=== PATIENT | male | born 1970 | race Caucasian/White ===

== ENCOUNTER → 2018-03-01 | Outpatient (CLI) | payer BC, OTHER | LOC: LAB.O 07:52 | PROVIDERS: ATTEND Nurse Practitioner Family | DX: R03.0 Elevated blood-pressure reading, without diagnosis of hypertension (principal); Z12.5 Encounter for screening for malignant neoplasm of prostate; Z13.220 Encounter for screening for lipoid disorders ==

== ENCOUNTER → 2019-02-21 | Outpatient (CLI) | payer BC | LOC: YCFC.O 07:41 | PROVIDERS: ATTEND Nurse Practitioner Family | DX: Z00.00 Encounter for general adult medical examination without abnormal findings (principal); E66.01 Morbid (severe) obesity due to excess calories; E29.1 Testicular hypofunction; Z12.5 Encounter for screening for malignant neoplasm of prostate ==

== ENCOUNTER 2019-09-10 11:16 | Emergency (ER) | payer BC ==
[2019-09-10 11:44] VITALS: TEMP 97.8
[2019-09-10] MEDS: SODIUM CHLORIDE 0.9% 1000ML 1,000 ML IVS ONE ×2 (12:05→13:21)
[2019-09-10] MEDS: ONDANSETRON INJ 4 MG/2 ML VIAL IV ONE (12:05)
[2019-09-10] MEDS: PANTOPRAZOLE SODIUM IV 40 MG VIAL IV ONE (12:08)
--- NOTE | 2019-09-10 12:18 | ED.PDOC ---
History of Present Illness - General Chief Complaint: Respiratory Problem Stated Complaint: cough and congestion Time Seen by Provider: 09/10/19 11:27 Source: patient, RN notes reviewed, Vital Signs reviewed - History of Present Illness Initial Comments: Patient presents for evaluation of nausea, vomiting, fevers and cough for the past week. Notes that he has had recent sick contacts with family that has all had the flu. He denies SOB. States that his cough is non-productive. Has had an episode or two of diarrhea. Denies any previous hx of lung disease. Does vape. Denies any recent abx. Allergies/Adverse Reactions: Allergies NO KNOWN ALLERGY Allergy (Verified 09/10/19 11:44) Home Medications: Ambulatory Orders Cyclobenzaprine HCl [Flexeril] 10 mg PO TID PRN #15 tab 05/21/14 Ondansetron Odt [Zofran ODT] 4 mg PO Q6H PRN #8 tab 09/10/19 Oseltamivir Capsule [Tamiflu] 75 mg PO BID 5 Days #10 capsule 09/10/19 RX: Azithromycin 500 mg PO DAILY #5 tab 09/10/19 Review of Systems - Review of Systems Constitutional: States: fever EENTM: States: nose congestion Respiratory: States: cough. Denies: short of breath Cardiology: Denies: chest pain Gastrointestinal/Abdominal: States: nausea, vomiting Musculoskeletal: Denies: back pain Neurological: Denies: headache Past Medical History (General) - Patient Medical History Hx Cardiac Disorders: Yes Hx Congestive Heart Failure: No Hx Hypertension: Yes Surgical History: other - Vaccination History Hx Influenza Vaccination: No Hx Pneumococcal Vaccination: No - Social History Hx Tobacco Use: No Hx Alcohol Use: No Family Medical History - Family History Mother Family History: Unknown Physical Exam - Physical Exam General Appearance: Alert, No apparent distress Neck: full range of motion, supple Respiratory: rhonchi - Bilateral lower perez Cardiovascular/Chest: normal peripheral pulses, regular rate, rhythm, no edema, no gallop Gastrointestinal/Abdominal: normal bowel sounds, non tender, soft Neurologic: sports nutritionist II-XII nml as tested, alert, normal mood/affect, oriented x 3 Skin Exam: warm/dry Progress - Progress Progress: Patient presented for evaluation of fever, cough and vomiting/diarrhea. Symptoms were consistent with influenza. Given recent sick contacts with influenza, flu screen was not performed. CXR was consistent with pneumonia. CBC was not significant for leukocytosis. CMP was significant for signs of dehydration and hyponatremia, likely from vomiting/diarrhea. Urine legionella antigen was also ordered given his hyponatremia and pneumonia. Patient has no risk factors for legionella. He was given zofran, reglan and phenergan for nausea with some improvement. He was given protonix for gastritis symptoms. He was not able to tolerate GI cocktail. I discussed admission with patient for new pneumonia, legionella work-up and intractable nausea. However, the patient declined. Discussed importance of admission for hydration and correction of hyponatremia. Patient felt more comfortable with discharge and trialing outpatient treatment. Will discharge with Rx for tamiflu, azithromycin and zofran. Discussed immediate return to ER if anything changes. - Results/Orders Results/Orders: Laboratory Results WBC 6.4 K/mm3 (4.8-10.8) 09/10/19 11:42 RBC 5.35 M/mm3 (4.70-6.10) 09/10/19 11:42 Hgb 16.1 gm/dL (14.0-18.0) 09/10/19 11:42 Hct 46.4 % (42.0-52.0) 09/10/19 11:42 MCV 86.7 fl (80.0-94.0) 09/10/19 11:42 MCH 30.0 pg (27.0-31.0) 09/10/19 11:42 MCHC 34.6 g/dL (33.0-37.0) 09/10/19 11:42 RDW 13.1 % (11.5-14.5) 09/10/19 11:42 Plt Count 124 K/mm3 (130-400) L 09/10/19 11:42 MPV 9.0 fl (7.40-10.4) 09/10/19 11:42 Absolute Neuts (auto) 4.50 K/uL (1.8-6.8) 09/10/19 11:42 Absolute Lymphs (auto) 0.90 K/uL (1.0-3.4) L 09/10/19 11:42 Absolute Monos (auto) 0.90 K/uL (0.2-0.8) H 09/10/19 11:42 Absolute Eos (auto) 0.00 K/uL (0.0-0.4) 09/10/19 11:42 Absolute Basos (auto) 0.00 K/uL (0.0-0.1) 09/10/19 11:42 Neutrophils % 70.3 % (42.0-78.0) 09/10/19 11:42 Lymphocytes % 14.8 % (20.0-50.0) L 09/10/19 11:42 Monocytes % 14.5 % (2.0-9.0) H 09/10/19 11:42 Eosinophils % 0.0 % (1.0-5.0) L 09/10/19 11:42 Basophils % 0.4 % (0.0-2.0) 09/10/19 11:42 Sodium 122 mmol/L (135-145) L 09/10/19 11:42 Potassium 3.5 mmol/L (3.6-5.0) L 09/10/19 11:42 Chloride 83 mmol/L (101-111) L 09/10/19 11:42 Carbon Dioxide 21 mmol/L (21-31) 09/10/19 11:42 Anion Gap 21.5 (12-18) H 09/10/19 11:42 BUN 19 mg/dL (7-18) H 09/10/19 11:42 Creatinine 1.38 mg/dL (0.6-1.3) H 09/10/19 11:42 BUN/Creatinine Ratio 13.8 (10-20) 09/10/19 11:42 Random Glucose 130 mg/dL (70-105) H 09/10/19 11:42 Serum Osmolality 249.9 mOsm/L (275-295) L* 09/10/19 11:42 Calcium 8.8 mg/dL (8.4-10.2) 09/10/19 11:42 Total Bilirubin 0.9 mg/dL (0.2-1.0) 09/10/19 11:42 AST 135 IU/L (10-42) H 09/10/19 11:42 ALT 74 IU/L (10-60) H 09/10/19 11:42 Alkaline Phosphatase 75 IU/L (42-121) 09/10/19 11:42 Serum Total Protein 7.6 gm/dL (6.4-8.2) 09/10/19 11:42 Albumin 3.9 g/dl (3.2-5.5) 09/10/19 11:42 Globulin 3.7 gm/dL (2.3-3.5) H 09/10/19 11:42 Albumin/Globulin Ratio 1.1 (1.1-1.9) 09/10/19 11:42 Lipase 31 U/L (22-51) 09/10/19 11:42 - EKG/XRAY/CT XRAY: chest - Bilateral patchy infiltrates Departure - Departure Clinical Impression: Influenza, Hyponatremia Pneumonia Qualifiers: Pneumonia type: due to unspecified organism Laterality: bilateral Lung location: lower lobe of lung Qualified Code(s): J18.9 - Pneumonia, unspecified organism Time of Disposition: 14:51 Disposition: Discharge to Home or Self Care Condition: Good Departure Forms: ED Discharge - Pt. Copy, Patient Portal Self Enrollment Instructions: DI for Pneumonia -- Adult, Hyponatremia (DC) Referrals: Aline Samuel FNP [Primary Care Provider] - 1-2 Weeks Prescriptions: RX: Azithromycin 500 mg PO DAILY #5 tab Ondansetron Odt [Zofran ODT] 4 mg PO Q6H PRN #8 tab PRN Reason: Nausea Oseltamivir Capsule [Tamiflu] 75 mg PO BID 5 Days #10 capsule Home Medications: Ambulatory Orders Cyclobenzaprine HCl [Flexeril] 10 mg PO TID PRN #15 tab 05/21/14 Ondansetron Odt [Zofran ODT] 4 mg PO Q6H PRN #8 tab 09/10/19 Oseltamivir Capsule [Tamiflu] 75 mg PO BID 5 Days #10 capsule 09/10/19 RX: Azithromycin 500 mg PO DAILY #5 tab 09/10/19 Comments: Esau Wynn D.O. [facility] #[id number]
--- NOTE | 2019-09-10 12:39 | RAD ---
EXAM DESCRIPTION: Chest,2 Views CLINICAL HISTORY: Cough COMPARISON: Previous chest x-ray May 21, 2014 TECHNIQUE: PA/lateral FINDINGS: Heart size is normal with normal pulmonary vascularity. No pleural effusion or pneumothorax. Patchy bilateral pulmonary infiltrates are present in the lung bases consistent with pneumonia. Lungs are clear with no consolidating infiltrate. Lateral view shows intact sternum and T-spine. Lateral view shows abnormal density overlying the heart as well as over the lower T-spine consistent with right middle lobe, right lower lobe, lingular and left lower lobe involvement. These findings are new compared to the previous study. IMPRESSION: Bibasilar pulmonary infiltrates consistent with pneumonia. Electronically signed by: Albin Robles MD 09/10/2019 12:37 PM [employer]
[2019-09-10] MEDS ORDERED: PROMETHAZINE HCL INJ 25 MG/ML VIAL ONE (13:17)
[2019-09-10] MEDS ORDERED: SODIUM CHLORIDE 0.9% 50ML 50 ML ONE (13:17)
[2019-09-10] MEDS: PROMETHAZINE HCL INJ 12.5 MG in SODIUM CHLORIDE 0.9% 50ML 50 ML IVPB ONE (13:20)
[2019-09-10] MEDS ORDERED: ALUM & MAG HYDROX-SIMETHICONE 30 ML UD ONE (14:04)
[2019-09-10] MEDS ORDERED: LIDOCAINE HCL 2% (MOUTH-THROAT) 15 ML UD ONE (14:04)
[2019-09-10] MEDS: ALUM & MAG HYDROX-SIMETHICONE 30 ML, LIDOCAINE VISCOUS 2% 15 ML PO ONE ×2 (14:07)
[2019-09-10] MEDS: METOCLOPRAMIDE HCL INJ 10 MG/2 ML VIAL IV ONE (14:29)
[2019-09-10] MEDS ORDERED: ACETAMINOPHEN 500 MG TAB PO ONE (15:14)
[2019-09-10 15:21] VITALS: BP 126/87; O2SAT 94
== END 2019-09-10 15:17 | disposition home or self-care (01) ==
LOC: ER 11:16
DX: J18.9 Pneumonia, unspecified organism (principal); J11.1 Influenza due to unidentified influenza virus with other respiratory manifestations; E87.1 Hypo-osmolality and hyponatremia; R11.2 Nausea with vomiting, unspecified; R19.7 Diarrhea, unspecified; F17.290 Nicotine dependence, other tobacco product, uncomplicated; I51.9 Heart disease, unspecified; I10 Essential (primary) hypertension; Z79.899 Other long term (current) drug therapy
CPT/HCPCS: 36415; 71046; 80053; 83690; 85025; A4216; J2405; J2550; J2765; J7030

== ENCOUNTER 2019-09-13 09:21 | Inpatient (IN) | payer BC ==
[2019-09-13] MEDS ORDERED: IPRATROPIUM/ALBUTEROL 3 ML VIAL NEB ONE (10:01)
[2019-09-13] MEDS ORDERED: methylPREDNISolone SODIUM SUC 125 MG/2 ML VIAL IM ONE (10:02)
[2019-09-13] MEDS ORDERED: SODIUM CHLORIDE 0.9% 1000ML 1,000 ML IVS ONE (10:32)
--- NOTE | 2019-09-13 11:13 | RAD ---
EXAM: XR Chest, 1 View CLINICAL HISTORY: sob TECHNIQUE: Frontal view of the chest. COMPARISON: 09/10/2019. FINDINGS: Lungs: Increased nodular infiltrates within both lower lung zones. Pleural space: Unremarkable. No pneumothorax. Heart: Unremarkable. No cardiomegaly. Mediastinum: Unremarkable. Bones/joints: Unremarkable. IMPRESSION: Increased nodular infiltrates within both lower lung zones. Consider further evaluation with CT chest to exclude or nodules. Electronically signed by: Natty Monte MD 09/13/2019 11:12 AM [facility]
--- NOTE | 2019-09-13 11:43 | ED.PDOC ---
History of Present Illness - General Chief Complaint: Respiratory Problem Stated Complaint: Fatigue, cough, congestion, unable to eat Time Seen by Provider: 09/13/19 10:01 - History of Present Illness Initial Comments: Pt was recently in the er and was diagnosed with pneumonia and sent home on Zithromax, pt says that now his symptoms are getting worse with Fatigue, cough, congestion, unable to eat and sob Severity: moderate Improving Factors: nothing Worsening Factors: nothing Associated Symptoms: shortness of breath Allergies/Adverse Reactions: Allergies NO KNOWN ALLERGY Allergy (Verified 09/13/19 09:57) Home Medications: Ambulatory Orders Cyclobenzaprine HCl [Flexeril] 10 mg PO TID PRN #15 tab 05/21/14 Azithromycin 500 mg PO DAILY #5 tab 09/10/19 Ondansetron Odt [Zofran ODT] 4 mg PO Q6H PRN #8 tab 09/10/19 Oseltamivir Capsule [Tamiflu] 75 mg PO BID 5 Days #10 capsule 09/10/19 Review of Systems - Review of Systems Constitutional: States: weakness EENTM: States: no symptoms reported, see HPI Respiratory: States: see HPI Cardiology: States: no symptoms reported Gastrointestinal/Abdominal: States: no symptoms reported Genitourinary: States: no symptoms reported Musculoskeletal: States: no symptoms reported Skin: States: no symptoms reported Neurological: States: no symptoms reported Endocrine: States: no symptoms reported Hematologic/Lymphatic: States: no symptoms reported Past Medical History (General) - Patient Medical History Hx Cardiac Disorders: Yes - [place] 2007 Hx Congestive Heart Failure: No Hx Hypertension: Yes Hx Gastroesophageal Reflux: Yes Hx Cancer: Yes - Sq cell carcinoma Surgical History: cancer surgery, coronary bypass surgery - Vaccination History Hx Influenza Vaccination: No Hx Pneumococcal Vaccination: No - Social History Hx Tobacco Use: Yes Hx Alcohol Use: Yes Hx Substance Use: No Hx Substance Use Treatment: No Hx Depression: No - Female History Patient is a Female of Child Bearing Age (10 -59 yrs old): No Patient : No Family Medical History - Family History Mother Family History: Unknown Living Status: Unknown Physical Exam - Physical Exam General Appearance: Alert, Well Developed, Well Nourished Eye Exam: bilateral normal ENT Exam: normal ENT inspection, hearing grossly normal Neck: non-tender, full range of motion, supple, normal inspection Respiratory: other - Decrease BS B/L lower lobes Extremity: normal range of motion, non-tender, normal inspection Neurologic: no motor/sensory deficits, alert, normal mood/affect, oriented x 3 Skin Exam: normal color Lymphatic: no adenopathy Progress - Progress Progress: 09/13/19 12:41 Case d/w hospitalist Francois Arrington agreed to admit the pt - Results/Orders Results/Orders: 09/13/19 11:43 ABG [Arterial Blood Gas] Stat Laboratory Results WBC 9.2 K/mm3 (4.8-10.8) 09/13/19 10:17 RBC 4.97 M/mm3 (4.70-6.10) 09/13/19 10:17 Hgb 15.0 gm/dL (14.0-18.0) 09/13/19 10:17 Hct 43.4 % (42.0-52.0) 09/13/19 10:17 MCV 87.4 fl (80.0-94.0) 09/13/19 10:17 MCH 30.2 pg (27.0-31.0) 09/13/19 10:17 MCHC 34.6 g/dL (33.0-37.0) 09/13/19 10:17 RDW 13.0 % (11.5-14.5) 09/13/19 10:17 Plt Count 179 K/mm3 (130-400) 09/13/19 10:17 MPV 9.0 fl (7.40-10.4) 09/13/19 10:17 Absolute Neuts (auto) 7.00 K/uL (1.8-6.8) H 09/13/19 10:17 Absolute Lymphs (auto) 0.80 K/uL (1.0-3.4) L 09/13/19 10:17 Absolute Monos (auto) 1.30 K/uL (0.2-0.8) H 09/13/19 10:17 Absolute Eos (auto) 0.00 K/uL (0.0-0.4) 09/13/19 10:17 Absolute Basos (auto) 0.10 K/uL (0.0-0.1) 09/13/19 10:17 Neutrophils % 76.0 % (42.0-78.0) 09/13/19 10:17 Lymphocytes % 8.6 % (20.0-50.0) L 09/13/19 10:17 Monocytes % 14.6 % (2.0-9.0) H 09/13/19 10:17 Eosinophils % 0.1 % (1.0-5.0) L 09/13/19 10:17 Basophils % 0.7 % (0.0-2.0) 09/13/19 10:17 Sodium 129 mmol/L (135-145) L 09/13/19 10:17 Potassium 3.6 mmol/L (3.6-5.0) 09/13/19 10:17 Chloride 84 mmol/L (101-111) L 09/13/19 10:17 Carbon Dioxide 30 mmol/L (21-31) 09/13/19 10:17 Anion Gap 18.6 (12-18) H 09/13/19 10:17 BUN 9 mg/dL (7-18) 09/13/19 10:17 Creatinine 1.03 mg/dL (0.6-1.3) 09/13/19 10:17 BUN/Creatinine Ratio 8.7 (10-20) L 09/13/19 10:17 Random Glucose 132 mg/dL (70-105) H 09/13/19 10:17 Serum Osmolality 259.5 mOsm/L (275-295) L 09/13/19 10:17 Calcium 8.9 mg/dL (8.4-10.2) 09/13/19 10:17 Total Bilirubin 0.8 mg/dL (0.2-1.0) 09/13/19 10:17 AST 70 IU/L (10-42) H D 09/13/19 10:17 ALT 73 IU/L (10-60) H 09/13/19 10:17 Alkaline Phosphatase 75 IU/L (42-121) 09/13/19 10:17 Serum Total Protein 7.4 gm/dL (6.4-8.2) 09/13/19 10:17 Albumin 3.6 g/dl (3.2-5.5) 09/13/19 10:17 Globulin 3.8 gm/dL (2.3-3.5) H 09/13/19 10:17 Albumin/Globulin Ratio 0.9 (1.1-1.9) L 01/05/20 10:17 Departure - Departure Clinical Impression: Hypoxemia, Pneumonia, Hyponatremia Time of Disposition: 12:42 Disposition: Admit Patient Condition: Fair Departure Forms: ED Discharge - Pt. Copy, Patient Portal Self Enrollment Referrals: Aline Samuel FNP [Primary Care Provider] - 1-2 Weeks Home Medications: Ambulatory Orders Cyclobenzaprine HCl [Flexeril] 10 mg PO TID PRN #15 tab 05/21/14 Azithromycin 500 mg PO DAILY #5 tab 09/10/19 Ondansetron Odt [Zofran ODT] 4 mg PO Q6H PRN #8 tab 09/10/19 Oseltamivir Capsule [Tamiflu] 75 mg PO BID 5 Days #10 capsule 09/10/19
[2019-09-13] MEDS ORDERED: levoFLOXacin 750MG IV 750 MG in PREMIX BAG 1 BAG IVPB ONE (11:48)
--- NOTE | 2019-09-13 13:37 | HP ---
SUPERVISING PHYSICIAN: Ho Queen MD CHIEF COMPLAINT: Flu-like symptoms with a fever and cough. HISTORY OF PRESENT ILLNESS: Mr. Garcia is a 49 year-old male patient who presented to the Emergency Room today with complaints of worsening fatigue and shortness of breath. He also noted that he has had some diarrhea, that he hasn't eaten very much since . He was diagnosed in the Emergency Room here on September 10 with flu-like symptoms but was not tested for influenza and pneumonia at that time. At that time, he was not started on Tamiflu but was given a Z-Remigio and discharged home. The patient notes that his symptoms have slowly worsened and he is significantly fatigued with any exertional effort. Initially in the Emergency Room, he did show oxygen saturations in the low 80s on room air. The patient endorses that he is not dependent on 02 regularly at home. He does endorse that he was exposed to multiple family members over that had flu-like symptoms and was diagnosed with the flu and he was the last one out of his family to have onset of symptoms this last week. A chest x-ray in the Emergency Room showed he had increase nodular infiltrates within both lung zones. His lab showed a normal white count at 9,200 with a left shift. His chemistries show he had a low sodium and elevated anion gap. Liver functions were slightly elevated with AST of 70 and ALT of 73. The Emergency Room physician requested the patient be admitted for continuation of workup and treatment of bilateral pneumonia. He was given fluids in the Emergency Room along with Solu-Medrol and Levaquin. He is now going to be admitted for flu-like symptoms and continuation of treatment for bilateral pneumonia. He was admitted in stable condition. PAST MEDICAL HISTORY: 1. Hypertension. 2. Gastroesophageal reflux disease. PAST SURGICAL HISTORY: 1. Discectomy at L4 and L5. 2. Cardiac stent placement in 2007. 3. 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 CURRENT MEDICATIONS: 1. Nexium 20 mg daily. 2. Aspirin 81 mg daily. 3. Lisinopril Hydrochlorothiazide 20-25 mg one tablet daily. 4. Azithromycin 500 mg ALLERGIES: No known drug allergies. FAMILY HISTORY: Father at age 64 due to lung cancer in 2005. Mother's history is unknown. Two brothers, one had a stroke at age 55, the other is healthy. SOCIAL HISTORY: The patient is , lives in [place]. He works at [employer]. He has never smoked but he is currently using a vaping system, an e-cigarette. He does not drink alcohol or use illicit drugs. REVIEW OF SYSTEMS: CONSTITUTIONAL: Positive for general malaise, fatigue, subjective fever. HEENT: Negative for earache, sore throat. Positive for nasal congestion. RESPIRATORY: As noted in history of present illness, worsened cough and shortness of breath, wheezing. HEART: Denies chest pain, palpitations, syncopal episodes. GASTROINTESTINAL: Positive for nausea and diarrhea, negative for vomiting, constipation or abdominal pain. GENITOURINARY: Denies dysuria, hematuria or polyuria. MUSCULOSKELETAL: Positive for general joint achiness. No joint swelling. SKIN: Denies lesions, moles, rashes or unexplained changes. NEUROLOGIC: Denies ataxia, seizures, headaches or other focal deficits. PHYSICAL EXAMINATION: VITAL SIGNS: Temperature 98.6, heart rate 108, blood pressure 112/85, respirations are 20, oxygen saturation 85% on room air, improving to 93% with nasal cannula at 2.5 liters after breathing treatments. GENERAL: The patient does appear generally unwell, tired, well-nourished but looks dehydrated and is in no current acute distress. He is alert. HEENT: Tympanic membranes are clear bilateral. Oropharynx is pink and moist. There was noted a small lesion to the lateral aspect of his tongue on the left side. No other lesions or changes. Posterior pharynx was mildly erythemic. NECK: Supple, non-tender with full range of motion. No jugular venous distention. CHEST: He has significantly decreased breath sounds throughout with some mild inspiratory and expiratory wheezing bilaterally and faint rhonchi heard to the bases more so on the lateral aspect bilaterally. CARDIOVASCULAR: Regular rate and rhythm without appreciable murmurs, rubs, or gallops. EXTREMITIES: No cyanosis, clubbing, or edema. NEUROLOGIC: He is alert and oriented x 3. SKIN: Warm, pink and dry. LABORATORY: White count normal at 9,200. He did have a left shift. Blood gas analysis showed a pH of 7.49 with P02 of 79, PC02 of 34, bicarb 25 with a saturation of 96% on 3 liter nasal cannula. Chemistries showed a low sodium of 129 with anion gap elevated at 18. Carbon dioxide 30, creatinine 1.03 with BUN of 9. Blood sugar 132, calcium 8.9, bilirubin normal, AST elevated at 70, ALT of 73. Rapid A strep screen was negative. MICROBIOLOGY: Influenza A and B by PCR was positive for influenza A. Blood cultures are pending. RADIOLOGY: Chest x-ray in the Emergency Room showed increased nodular infiltrates in both lower lung zones. This was followed up after admission to the medical/surgical floor with a CT of the chest with contrast and per radiology interpretation there was note of diffuse bilateral lung multifocal ground-glass opacities more confluent within the lung bases. It was noted that broad differential could include atypical infection/inflammation or cryptogenic organizing pneumonia or hypertensive pneumonitis. It was noted that this is unlikely appearance of metastatic disease. Clinical correlation is advised and followup to document resolution. No lymphadenopathy was noted. ASSESSMENT: 1. Sepsis secondary to influenza and bilateral pneumonia with patient showing hypoxemia and a respiratory alkalosis, tachycardia and elevated liver functions. 2. Multifocal pneumonia secondary to #1, possible viral pneumonitis versus developing bacterial pneumonia with patient having risk factors to include Pseudomonas. 3. Nausea and diarrhea, likely due to acute illness due to #1. 4. Electrolyte imbalance to include hyponatremia likely chronic with patient on Hydrochlorothiazide with some mild exacerbation due to current pneumonia. 5. Elevated transaminase, uncertain etiology, probably due to acute illness and recent Tylenol consumption for fever and pain control. 6. Chronic nicotine addiction in the form of vaping possibly complicating underlying pneumonia. 7. Hypertension on lisinopril. 8. Chronic gastroesophageal reflux disease. PLAN: Mr. Garcia is going to be admitted for treatment of influenza A and developing pneumonia. He was started on Tamiflu and Levaquin. We will put him on some IV fluids to help with some mild dehydration as he has had some poor oral intake in the last several days. Given that he is currently using a vaping system and shows a significant amount of ground-glass opacities on his CT, we will go ahead and start him on corticosteroids with Solu-Medrol. He will be on oxygen as needed to maintain his 02 saturation above 93%. We will recheck his labs and follow his respiratory rate in the morning. I anticipate his length of stay to be 2 to 3 days. He will be on DVT prophylaxis per protocol with Lovenox. Until we can transition him to outpatient management, we will continue to monitor and treat as needed. #[id number] [facility]
[2019-09-13] MEDS ORDERED: ALBUTEROL SULFATE 2.5 MG/3 ML VIAL NEB PRN (15:21)
[2019-09-13] MEDS ORDERED: ACETAMINOPHEN 325 MG TAB PO PRN (15:21)
[2019-09-13] MEDS ORDERED: SODIUM CHLORIDE 0.9% (FLUSH) 10 ML SYG IV PRN (15:21)
[2019-09-13] MEDS ORDERED: IV SET AND CAP CHANGE INJ INJ SCH (15:30)
--- NOTE | 2019-09-13 16:16 | CT ---
EXAM DESCRIPTION: Chest w/Contrast CLINICAL HISTORY: 49 years, Male, F/u on Cxr nodular inflitrates, Hx Sqamous Cell CA COMPARISON: Chest radiograph same day and 09/10/2018. TECHNIQUE: Thin-section axial CT images are obtained during rapid bolus administration of IV contrast media. Reconstructed MPR images are created and reviewed as well. FINDINGS: Bilateral diffuse peripheral predominant groundglass opacities within both lungs, more pronounced within the lung bases. No associated pleural effusion or pneumothorax. No solid pulmonary mass. No evidence of interstitial lung disease. The heart is normal in size without pericardial effusion. The great vessels are normal in caliber. No mediastinal or hilar adenopathy. No axillary lymphadenopathy. No acute osseous abnormality. No suspicious osseous lesion. Degenerative changes of the spine. Partially visualized upper abdomen is unremarkable. IMPRESSION: 1. Diffuse bilateral lung multifocal groundglass opacities (more confluent within the lung bases). Broad differential includes atypical infection/inflammation, cryptogenic organizing pneumonia, or hypersensitivity pneumonitis. This is an unlikely appearance of metastatic disease. Clinical correlation is advised. Follow-up to document resolution. 2. No lymphadenopathy. This exam was performed according to our departmental dose-optimization program, which includes automated exposure control, adjustment of the mA and/or kV according to patient size and/or use of iterative reconstruction technique. Electronically signed by: Ge Jimenez DO 09/13/2019 4:14 PM [facility]
[2019-09-13] MEDS ORDERED: SODIUM CHL 0.9% 50ML MIN-BAG+ 50 ML IVPB ONE (16:59)
[2019-09-13] MEDS ORDERED: CEFEPIME 2 GM VIAL ONE ×2 (17:00→19:21)
[2019-09-13] MEDS: IPRATROPIUM/ALBUTEROL 3 ML VIAL NEB SCH ×2 (17:04→20:30)
[2019-09-13] MEDS: SODIUM CHLORIDE 0.9% 1000ML 1,000 ML IVS PRN (17:34)
[2019-09-13] MEDS: CEFEPIME 2 GM in SODIUM CHL 0.9% 50ML MIN-BAG+ 50 ML IVPB SCH (17:36)
[2019-09-13] MEDS: methylPREDNISolone SODIUM SUC 125 MG/2 ML VIAL IV SCH ×2 (18:07→23:50)
[2019-09-13] MEDS: ASPIRIN (CHEWABLE) 81 MG TAB PO SCH (18:07)
[2019-09-13] MEDS ORDERED: PROMETHAZINE W/CODEINE SYR 5 ML UD PO PRN (20:05)
[2019-09-13] MEDS: OSELTAMIVIR 75 MG CAP PO SCH (20:52)
[2019-09-14] MEDS: SODIUM CHLORIDE 0.9% 1000ML 1,000 ML IVS PRN ×3 (01:25→20:56)
[2019-09-14] MEDS ORDERED: SODIUM CHL 0.9% 50ML MIN-BAG+ 50 ML IVPB ONE ×2 (03:50→15:45)
[2019-09-14] MEDS: CEFEPIME 2 GM in SODIUM CHL 0.9% 50ML MIN-BAG+ 50 ML IVPB SCH ×2 (04:00→16:34)
--- NOTE | 2019-09-14 07:53 | RAD ---
EXAM: Chest,2 Views HISTORY: Pneumonia COMPARISON: Chest one view 09/13/2019 CT chest 09/13/2019 TECHNIQUE: Chest two views PA and lateral FINDINGS: Heart size within normal limits. Trachea midline. Mild diffuse bilateral interstitial lung opacities. Mild hazy bilateral lower lung field opacities. No pleural effusion or pneumothorax. No acute fracture. IMPRESSION: Mild diffuse bilateral interstitial lung opacities. Mild hazy bilateral lower lung field opacities. This may represent infection or pulmonary edema. Electronically signed by: Rodney Arreola MD 09/14/2019 7:52 AM [facility]
[2019-09-14] MEDS: IPRATROPIUM/ALBUTEROL 3 ML VIAL NEB SCH ×4 (08:09→20:06)
[2019-09-14] MEDS: ASPIRIN (CHEWABLE) 81 MG TAB PO SCH (08:13)
[2019-09-14] MEDS: OSELTAMIVIR 75 MG CAP PO SCH ×2 (08:13→20:56)
[2019-09-14] MEDS: AZITHROMYCIN 250 MG TAB PO SCH (08:13)
[2019-09-14] MEDS ORDERED: levoFLOXacin 750MG IV 750 MG in PREMIX BAG 1 BAG IVPB SCH (10:00)
[2019-09-14] MEDS ORDERED: CEFEPIME 2 GM VIAL ONE (15:46)
--- NOTE | 2019-09-14 17:59 | PCM.PROG ---
PCM Subjective - Review of Systems Events since last encounter: Patient states he feels a little better than he did yesterday, although still with some shortness of breath with exertion. Denies any nausea or vomiting. He is tolerating diet well. Objective - Exam Vitals and I&O: Vital Signs Temp 97.5 F L 09/14/19 16:00 Pulse 76 09/14/19 16:10 Resp 18 09/14/19 16:10 BP 131/76 09/14/19 16:00 Pulse Ox 94 L 09/14/19 16:10 Intake & Output 09/13/19 09/14/19 09/14/19 18:59 06:59 18:59 Intake Total 290 1881 2080 Balance 290 1881 2080 Weight 370 lb 9.6 oz 370 lb 9.6 oz Intake: IV 50 1031 1000 Maxipime 2 GM In NS 50ml 50 50 MINI-BAG+ 50 ML @ 100 mls /hr IVPB Q12H ARISTEO Rx#: [id number] Ns 1000 ml 1,000 ml @ 889 937 7227 mls/hr IVS .QD PRN Rx#: [id number] Oral 192 [id number] 2666 Other: # Voids 1 1 1 # Bowel Movements 1 Weight Measurement Method Built in [facility] General: Alert, Oriented x3, Cooperative, No acute distress HEENT: Atraumatic, PERRLA Neck: Supple, No JVD Lungs: Other - Bases diminished with some mild wheezing diffusely Cardiovascular: Regular rate, Normal S1, Normal S2 Abdomen: Normal bowel sounds, Soft, No tenderness Extremities: No edema, Normal pulses - Results Results: Laboratory Results WBC 6.3 K/mm3 (4.8-10.8) 09/14/19 05:00 RBC 4.45 M/mm3 (4.70-6.10) L 09/14/19 05:00 Hgb 13.3 gm/dL (14.0-18.0) L 09/14/19 05:00 Hct 38.7 % (42.0-52.0) L 09/14/19 05:00 MCV 87.1 fl (80.0-94.0) 09/14/19 05:00 MCH 30.0 pg (27.0-31.0) 09/14/19 05:00 MCHC 34.5 g/dL (33.0-37.0) 09/14/19 05:00 RDW 12.9 % (11.5-14.5) 09/14/19 05:00 Plt Count 165 K/mm3 (130-400) 09/14/19 05:00 MPV 9.0 fl (7.40-10.4) 09/14/19 05:00 Absolute Neuts (auto) 5.40 K/uL (1.8-6.8) 09/14/19 05:00 Absolute Lymphs (auto) 0.40 K/uL (1.0-3.4) L 09/14/19 05:00 Absolute Monos (auto) 0.40 K/uL (0.2-0.8) 09/14/19 05:00 Absolute Eos (auto) 0.00 K/uL (0.0-0.4) 09/14/19 05:00 Absolute Basos (auto) 0.00 K/uL (0.0-0.1) 09/14/19 05:00 Neutrophils % 85.9 % (42.0-78.0) H 09/14/19 05:00 Lymphocytes % 6.9 % (20.0-50.0) L 09/14/19 05:00 Monocytes % 7.1 % (2.0-9.0) 09/14/19 05:00 Eosinophils % 0.0 % (1.0-5.0) L 09/14/19 05:00 Basophils % 0.1 % (0.0-2.0) 09/14/19 05:00 pCO2 34 mmHg (35-48) L 09/13/19 11:43 pO2 79 mmHg (83-108) L 09/13/19 11:43 HCO3 25.6 mmol/L 09/13/19 11:43 ABG pH 7.490 (7.35-7.45) H 09/13/19 11:43 ABG O2 Saturation 96.4 % (95.0-99.0) 09/13/19 11:43 ABG Base Excess 3.0 mmol/L 09/13/19 11:43 ABG Deoxyhemoglobin 3.5 % (0.0-5.0) 09/13/19 11:43 Oxyhemoglobin % 95.4 % (94.0-98.0) 09/13/19 11:43 Carboxyhemoglobin % 0.4 % (0.5-1.5) L 09/13/19 11:43 Methemoglobin % Sat 0.7 % (0.0-1.5) 09/13/19 11:43 Calc Total Hemoglobin 14.3 g/dL (13.5-17.5) 09/13/19 11:43 Sodium 132 mmol/L (135-145) L 09/14/19 05:00 Potassium 3.4 mmol/L (3.6-5.0) L 09/14/19 05:00 Chloride 94 mmol/L (101-111) L 09/14/19 05:00 Carbon Dioxide 25 mmol/L (21-31) 09/14/19 05:00 Anion Gap 16.4 (12-18) 09/14/19 05:00 BUN 8 mg/dL (7-18) 09/14/19 05:00 Creatinine 0.83 mg/dL (0.6-1.3) 09/14/19 05:00 BUN/Creatinine Ratio 9.6 (10-20) L 09/14/19 05:00 Random Glucose 170 mg/dL (70-105) H 09/14/19 05:00 Serum Osmolality 266.8 mOsm/L (275-295) L 09/14/19 05:00 Calcium 8.7 mg/dL (8.4-10.2) 09/14/19 05:00 Total Bilirubin 0.8 mg/dL (0.2-1.0) 09/13/19 10:17 AST 70 IU/L (10-42) H D 09/13/19 10:17 ALT 73 IU/L (10-60) H 09/13/19 10:17 Alkaline Phosphatase 75 IU/L (42-121) 09/13/19 10:17 Serum Total Protein 7.4 gm/dL (6.4-8.2) 09/13/19 10:17 Albumin 3.6 g/dl (3.2-5.5) 09/13/19 10:17 Globulin 3.8 gm/dL (2.3-3.5) H 09/13/19 10:17 Albumin/Globulin Ratio 0.9 (1.1-1.9) L 09/13/19 10:17 Group A Strep Rapid Negative (NEGATIVE) 09/13/19 14:37 Assessment/Plan - Assessment Assessment: 1. Influenza A with influenza pneumonitis and possible bacterial pneumonia. 2. Hypoxemia secondary to #1 3. Nicotine dependency in the form of vaping. 4. HTN, controlled. 5. Transaminitis. 6. Suspected ANGEL. - Plan for Current Visit Plan: We will continue nebs, empiric antibiotics, and Tamiflu. Encourage ambulation and wean oxygen as tolerated. Currently requiring nasal cannula to maintain oxygen saturations. Would recommend outpatient testing for ANGEL.
[2019-09-15] MEDS ORDERED: SODIUM CHL 0.9% 50ML MIN-BAG+ 50 ML IVPB ONE ×3 (04:36→20:18)
[2019-09-15] MEDS ORDERED: CEFEPIME 2 GM VIAL ONE ×3 (04:36→20:19)
[2019-09-15] MEDS: CEFEPIME 2 GM in SODIUM CHL 0.9% 50ML MIN-BAG+ 50 ML IVPB SCH ×2 (04:39→16:53)
--- NOTE | 2019-09-15 07:19 | RAD ---
EXAM DESCRIPTION: Chest,1 View CLINICAL HISTORY: Pneumonia FINDINGS/ IMPRESSION: Comparison 09/14/2019 Mild cardiomegaly. Pulmonary vascular congestion. Interstitial infiltrates in the perihilar regions and lung bases primarily with developing alveolar infiltrate in the right lung base. Pulmonary edema could have this appearance. The asymmetry in the right lung base may be developing pneumonia. No large effusions Electronically signed by: Gabriel Castro MD 09/15/2019 7:18 AM [facility]
[2019-09-15] MEDS: IPRATROPIUM/ALBUTEROL 3 ML VIAL NEB SCH ×4 (08:55→20:07)
[2019-09-15] MEDS: ASPIRIN (CHEWABLE) 81 MG TAB PO SCH (09:23)
[2019-09-15] MEDS: AZITHROMYCIN 250 MG TAB PO SCH (09:23)
[2019-09-15] MEDS: OSELTAMIVIR 75 MG CAP PO SCH ×2 (09:23→21:00)
[2019-09-15] MEDS ORDERED: POTASSIUM CHLORIDE 20 MEQ TAB PO ONE (10:15)
--- NOTE | 2019-09-15 10:23 | PCM.PROG ---
PCM Subjective - Review of Systems Events since last encounter: Patient feels okay. Ambulated hallway earlier, states that oxygen saturations were about 91% on room air during ambulation. No significant shortness of breath. Denies any nausea or vomiting. Wants to take a shower. Objective - Exam Vitals and I&O: Vital Signs Temp 98.5 F 09/15/19 05:00 Pulse 95 H 09/15/19 09:00 Resp 20 09/15/19 09:00 BP 117/74 09/15/19 05:00 Pulse Ox 96 09/15/19 09:00 Intake & Output 09/14/19 09/15/19 09/15/19 18:59 06:59 18:59 Intake Total 3130 610 Balance 3130 610 Weight 370 lb 9.6 oz 377 lb 3 oz Intake: IV 0 Maxipime 2 GM In NS 50ml 50 MINI-BAG+ 50 ML @ 100 mls /hr IVPB Q12H ARISTEO Rx#: [id number] Ns 1000 ml 1,000 ml @ 125 2000 mls/hr IVS .QD PRN Rx#: [id number] Oral 1080 610 Other: # Voids 1 3 # Bowel Movements 1 General: Alert, Oriented x3, Cooperative, No acute distress HEENT: Atraumatic, PERRLA, Mucous membr. moist/pink Neck: Supple, No JVD Lungs: Other - CTA upper lung perez, a small expiratory wheeze and end-expirati on in bilateral lower lung perez. Cardiovascular: Normal S1, Normal S2 Abdomen: Normal bowel sounds, Soft, No tenderness Extremities: No edema - Results Results: Laboratory Results WBC 11.3 K/mm3 (4.8-10.8) H D 09/15/19 05:05 RBC 4.17 M/mm3 (4.70-6.10) L 09/15/19 05:05 Hgb 12.4 gm/dL (14.0-18.0) L 09/15/19 05:05 Hct 36.9 % (42.0-52.0) L 09/15/19 05:05 MCV 88.5 fl (80.0-94.0) 09/15/19 05:05 MCH 29.8 pg (27.0-31.0) 09/15/19 05:05 MCHC 33.6 g/dL (33.0-37.0) 09/15/19 05:05 RDW 13.1 % (11.5-14.5) 09/15/19 05:05 Plt Count 257 K/mm3 (130-400) 09/15/19 05:05 MPV 8.2 fl (7.40-10.4) 09/15/19 05:05 Absolute Neuts (auto) 8.90 K/uL (1.8-6.8) H 09/15/19 05:05 Absolute Lymphs (auto) 0.90 K/uL (1.0-3.4) L 09/15/19 05:05 Absolute Monos (auto) 1.40 K/uL (0.2-0.8) H 09/15/19 05:05 Absolute Eos (auto) 0.00 K/uL (0.0-0.4) 09/15/19 05:05 Absolute Basos (auto) 0.00 K/uL (0.0-0.1) 09/15/19 05:05 Neutrophils % 79.3 % (42.0-78.0) H 09/15/19 05:05 Lymphocytes % 7.9 % (20.0-50.0) L 09/15/19 05:05 Monocytes % 12.7 % (2.0-9.0) H 09/15/19 05:05 Eosinophils % 0.0 % (1.0-5.0) L 09/15/19 05:05 Basophils % 0.1 % (0.0-2.0) 09/15/19 05:05 pCO2 34 mmHg (35-48) L 09/13/19 11:43 pO2 79 mmHg (83-108) L 09/13/19 11:43 HCO3 25.6 mmol/L 09/13/19 11:43 ABG pH 7.490 (7.35-7.45) H 09/13/19 11:43 ABG O2 Saturation 96.4 % (95.0-99.0) 09/13/19 11:43 ABG Base Excess 3.0 mmol/L 09/13/19 11:43 ABG Deoxyhemoglobin 3.5 % (0.0-5.0) 09/13/19 11:43 Oxyhemoglobin % 95.4 % (94.0-98.0) 09/13/19 11:43 Carboxyhemoglobin % 0.4 % (0.5-1.5) L 09/13/19 11:43 Methemoglobin % Sat 0.7 % (0.0-1.5) 09/13/19 11:43 Calc Total Hemoglobin 14.3 g/dL (13.5-17.5) 09/13/19 11:43 Sodium 135 mmol/L (135-145) 09/15/19 05:05 Potassium 3.1 mmol/L (3.6-5.0) L 09/15/19 05:05 Chloride 98 mmol/L (101-111) L 09/15/19 05:05 Carbon Dioxide 25 mmol/L (21-31) 09/15/19 05:05 Anion Gap 15.1 (12-18) 09/15/19 05:05 BUN 11 mg/dL (7-18) 09/15/19 05:05 Creatinine 0.83 mg/dL (0.6-1.3) 09/15/19 05:05 BUN/Creatinine Ratio 13.3 (10-20) 09/15/19 05:05 Random Glucose 130 mg/dL (70-105) H 09/15/19 05:05 Serum Osmolality 271.3 mOsm/L (275-295) L 09/15/19 05:05 Calcium 8.6 mg/dL (8.4-10.2) 09/15/19 05:05 Total Bilirubin 0.8 mg/dL (0.2-1.0) 09/13/19 10:17 AST 70 IU/L (10-42) H D 09/13/19 10:17 ALT 73 IU/L (10-60) H 09/13/19 10:17 Alkaline Phosphatase 75 IU/L (42-121) 09/13/19 10:17 Serum Total Protein 7.4 gm/dL (6.4-8.2) 09/13/19 10:17 Albumin 3.6 g/dl (3.2-5.5) 09/13/19 10:17 Globulin 3.8 gm/dL (2.3-3.5) H 09/13/19 10:17 Albumin/Globulin Ratio 0.9 (1.1-1.9) L 01/05/20 10:17 Group A Strep Rapid Negative (NEGATIVE) 09/13/19 14:37 Assessment/Plan - Assessment Assessment: 1. Influenza A with influenza pneumonitis and possible bacterial pneumonia. 2. hypoxemia secondary to #1. 3. Nicotine dependency in the form of vaping. 4. HTN, controlled. 5. Transaminitis. 6. Suspected ANGEL. 7. Hypokalemia. - Plan for Current Visit Plan: Will stop IV fluids. Supplement potassium with K-Dur. Will continue nebs and IV antibiotics. I suspect the leukocytosis is secondary to the steroid dose that he received. But, will monitor. Continue ambulation. CXR interpreted as pulmonary vascular congestion and possible developing RLL infiltrate. Will get a 2 view tomorrow. Recheck labs as well. If he is stable tomorrow, can go home with Tamiflu and PO antibiotics. Once again, I do think he needs outpatient evaluation for sleep apnea.
[2019-09-15] MEDS ORDERED: SODIUM CHLORIDE 0.65% NASAL SPRAY 45 ML BTTL BNAS SCH (12:00)
[2019-09-16] MEDS: CEFEPIME 2 GM in SODIUM CHL 0.9% 50ML MIN-BAG+ 50 ML IVPB SCH (04:04)
--- NOTE | 2019-09-16 07:28 | RAD ---
CHEST, TWO VIEW, XR CLINICAL HISTORY: pneumonitis vs pneumonia COMPARISON: 09/15/2019 TECHNIQUE: Frontal and lateral Chest. FINDINGS: There are patchy parenchymal opacities throughout the right and left lower lobe, right middle lobe and lingula consistent with pneumonia. Findings have slightly improved. No pneumothorax or pleural fluid. Heart is normal in size. Normal cardiac mediastinal contours Unremarkable soft tissues and bones. IMPRESSION: 1. Persistent but improving multifocal pneumonia. Electronically signed by: Samantha Harrington DO 09/16/2019 7:27 AM [employer]
[2019-09-16 08:13] VITALS: BP 113/70; TEMP 97.8; O2SAT 94
[2019-09-16] MEDS: ASPIRIN (CHEWABLE) 81 MG TAB PO SCH (08:14)
[2019-09-16] MEDS: OSELTAMIVIR 75 MG CAP PO SCH (08:14)
[2019-09-16] MEDS: AZITHROMYCIN 250 MG TAB PO SCH (08:14)
[2019-09-16] MEDS: IPRATROPIUM/ALBUTEROL 3 ML VIAL NEB SCH ×2 (08:15→14:09)
[2019-09-16] MEDS ORDERED: POTASSIUM CHLORIDE 20 MEQ TAB PO ONE (08:19)
[2019-09-16] MEDS ORDERED: guaiFENesin ER TAB 600 MG TAB PO SCH (11:00)
--- NOTE | 2019-09-16 13:56 | DS ---
SUPERVISING PHYSICIAN: Gabriel Groves MD DISCHARGE DIAGNOSIS: 1. Influenza A with influenza pneumonitis and possible bacterial pneumonia. 2. Hypoxemia secondary to #1, improved. 3. Nicotine dependency in the form of vaping. 4. Hypertension, controlled. 5. Transaminitis. 6. Suspected obstructive sleep apnea. 7. Hypokalemia. HISTORY OF PRESENT ILLNESS: This is a 49-year-old male patient who came to the Emergency Room today with complaints of worsening fatigue and shortness of breath. He also had some diarrhea and has not eaten very much since [place]. He was in the Emergency Room on September 10 and had flu-like symptoms, but was not tested for influenza or pneumonia at that time. He was not started on Tamiflu, but was given a Z-Remigio and discharged home. It is to be noted that his had the flu at [facility]. The patient had symptoms that worsened and at the point he came in, he was significantly fatigued with any exertional effort. In the Emergency Room, his oxygen saturations were in the low 80s on room air. He is not oxygen dependent at home. He was exposed to multiple family members over [place] that had flu-like symptoms and had been diagnosed with the flu shortly after that. A chest x-ray in the Emergency Room showed he had increased nodular infiltrates within both lung zones. His lab showed a normal white count at 9,200 with a left shift on differential. His chemistries showed a low sodium and elevated anion gap. Liver function tests were slightly elevated with AST of 70 and ALT of 73. He was treated with Solu-Medrol and Levaquin in the Emergency Room for pneumonia and was admitted for flu-like symptoms and continuation of treatment for bilateral pneumonia. He was admitted in stable condition. HOSPITAL COURSE: He was diagnosed with influenza and possibility of developing pneumonia. He was started on Tamiflu and Levaquin. He received some IV fluids especially due to his poor oral intake over the last week or so. He does currently use a vaping system and his CT showed a significant amount of ground- glass opacities. He initially required oxygen to keep his saturations above 93%. He was also put on Lovenox for DVT prophylaxis. He continued to have some mild exertional dyspnea. He continued to have a poor appetite. He continued on aggressive pulmonary hygiene including nebulizer treatments, antibiotics and Tamiflu. He began ambulating in the hallways and initially showed oxygen saturations around 90%, but he has since started ambulating in the hallways with no oxygen with saturations that are staying in the mid to low 90s. At some point, he was changed from Levaquin to cefepime and azithromycin. He will be discharged home today in stable condition. LABORATORY: His initial WBCs were 9,200 and went up as high as 11,900, likely secondary to steroid use. His hemoglobin and hematocrit remained stable and today are 12.2 and 36.4. He had left shift on his differential, but that is now resolved. Blood gas showed pCO2 34, pO2 79, bicarb 25.6 and pH 7.49. O2 saturations were 95%. His initial sodium was 129 and today is 133. Potassium was 3.6 and dropped as low as 3.1 and today is 3.2 and he received supplementation. Chloride on admission was 84 and is now 98. Carbon dioxide has remained stable and is 25. BUN 10, creatinine 0.79. Glucose has run between 121 and 170. His initial AST was 70 and today is 30. ALT was 73, today it is 52. Strep was negative. MICROBIOLOGY: Preliminary blood cultures showed no growth after 3 days. Influenza A and B per PCR was positive for influenza A, negative for influenza B. RADIOLOGY: His initial chest x-ray showed increased nodular infiltrates in both lower lung zones. Today, his chest x-ray showed persistent, but improving multifocal pneumonia. Chest CT shows: 1) Diffuse bilateral lung multifocal ground-glass opacities more confluent within the lung bases. Broad differential includes atypical infection/inflammation, cryptogenic organizing pneumonia or hypersensitivity pneumonitis. This is an unlikely appearance of metastatic disease. Clinical correlation is advised and followup to document resolution. 2) No lymphadenopathy. DISCHARGE PLAN: The patient will be discharged home in stable condition. He is to increase his activity as tolerated and to resume his previous diet. In addition to his routine medications, he is to continue on Levaquin for 5 days as well as cefdinir for 7 days. He is also to use Mucinex twice daily. He is to followup with Dr. Caballero on 09/23/19. He is to come to [facility] prior to his appointment with Dr. Caballero for a chest x-ray. He has been given a requisition for that. I have strongly encouraged the patient to stop vaping and he is to return to the hospital for any problems or complications. DISCHARGE MEDICATIONS: 1. Aspirin. 2. Lisinopril/hydrochlorothiazide. 3. Nexium. 4. Fluticasone. 5. Cefdinir. 6. Guaifenesin. 7. Levaquin. #[id number] [facility]
[2019-09-16] MEDS ORDERED: SODIUM CHLORIDE 0.9% (FLUSH) 10 ML SYG IV SCH (21:00)
== END 2019-09-16 12:10 | disposition home or self-care (01) | DRG 871 ==
LOC: ER 09:21 → OBSVTOIN 13:20 → MS 13:20
PROVIDERS: ADMIT Nurse Practitioner Family; ATTEND Nurse Practitioner Acute Care
PROC: BW241ZZ Computerized Tomography (CT Scan) of Chest and Abdomen using Low Osmolar Contrast (ICD-10-PCS; principal; 2019-09-13)
DX: A41.9 Sepsis, unspecified organism (principal); J10.00 Influenza due to other identified influenza virus with unspecified type of pneumonia; E87.1 Hypo-osmolality and hyponatremia; E86.0 Dehydration; R09.02 Hypoxemia; I10 Essential (primary) hypertension; R74.0 Nonspecific elevation of levels of transaminase and lactic acid dehydrogenase [LDH]; G47.33 Obstructive sleep apnea (adult) (pediatric); E87.6 Hypokalemia; K21.9 Gastro-esophageal reflux disease without esophagitis; I25.2 Old myocardial infarction; F17.290 Nicotine dependence, other tobacco product, uncomplicated; Z95.5 Presence of coronary angioplasty implant and graft; Z79.82 Long term (current) use of aspirin; Z79.899 Other long term (current) drug therapy

== ENCOUNTER → 2019-09-23 | Outpatient (CLI) | payer BC ==
--- NOTE | 2019-09-23 09:55 | RAD ---
EXAM DESCRIPTION: Chest,2 Views CLINICAL HISTORY: 49 years Male, PNEUMONIA, UNSP ORGANISM COMPARISON: September 16, 2019 Findings: Two radiographs Cardiac silhouette and pulmonary vasculature are within normal limits. No pneumothorax. No pleural effusion. Persistent although improving multifocal airspace disease. No acute osseous abnormality. Soft tissues are unremarkable. IMPRESSION: Persistent although improving multifocal pneumonia. Electronically signed by: Rob Mayo MD 09/23/2019 9:53 AM [employer]
== END ==
LOC: RAD 09:14
PROVIDERS: ATTEND Nurse Practitioner Acute Care
DX: J18.9 Pneumonia, unspecified organism (principal)

== ENCOUNTER → 2019-10-24 | Outpatient (CLI) | payer BC ==
--- NOTE | 2019-10-26 15:45 | RAD ---
EXAM DESCRIPTION: Chest,2 Views: NORA/ CLINICAL HISTORY: 49 years Male PNEUMONIA COMPARISON: 2 view chest x-ray September 23. TECHNIQUE: Two views. PA and Lateral. FINDINGS: Lungs: Mild to moderate expansion with bibasilar densities. Improved volume and decreasing infiltrate/pneumonia since the prior study. No upper lobe infiltrates. Pleural spaces: No effusion or pneumothorax bilaterally. Heart: Normal size. Pulmonary Vascularity: Not increased. Mediastinum: Not widened. Aorta: Unremarkable. Bony Thorax/Spine: No acute bony thoracic abnormalities. Minimal endplate changes are stable. IMPRESSION: Decreasing bilateral infiltrates since the prior study with no new radiographic findings of pneumonia. Electronically signed by: Lazarus Hanna MD 10/26/2019 3:43 PM [employer]
== END ==
LOC: YCFC.O 09:17
PROVIDERS: ATTEND Family Medicine
DX: J18.9 Pneumonia, unspecified organism (principal); R91.8 Other nonspecific abnormal finding of lung field; R74.8 Abnormal levels of other serum enzymes

== ENCOUNTER → 2020-09-23 | Outpatient (CLI) | payer BC | LOC: YCFC.O 10:37 | PROVIDERS: ATTEND Nurse Practitioner Family | DX: Z20.828 Contact with and (suspected) exposure to other viral communicable diseases (principal) ==